=== PATIENT | female | born 1980 | race Caucasian/White ===

== ENCOUNTER 2018-11-27 07:00 | Day surgery (SDC) | payer OTHER ==
[~2018-11-27] VITALS: Ht 170.2 cm; Wt 61.2 kg
--- NOTE | ~2018-11-27 | OR ---
[facility] [address] [place] [id number] Draft DATE OF OPERATION: 11/27/2018 SURGEON: Amy Byers DO PREOPERATIVE DIAGNOSES: 1. Abnormal uterine bleeding. 2. Fibroid uterus. 3. Endometrial thickening. POSTOPERATIVE DIAGNOSES: 1. Abnormal uterine bleeding. 2. Fibroid uterus. 3. Endometrial lesion, polyps versus fibroids. PROCEDURES PERFORMED: 1. Hysteroscopic polypectomy. 2. Dilation and curettage. SIFTER AND MILLER: None. ANESTHESIA: General. ESTIMATED BLOOD LOSS: 25 mL. FLUID DEFICIT: 825 mL. SPECIMEN: Endometrial curettings, polyps and possible fibroids. FINDINGS: Normal external genitalia with irritated genital wart or mole in the right inguinal fold. Normal vagina with good apical support. The cervix was normal with IUD strings, 4 cm in length. On hysteroscopy, endocervical polyps were noted. IUD in excellent position of the uterine cavity. Thin endometrium with some irregularities. Possible polyp versus submucosal fibroids. Hemostasis at the end of procedure. PATIENT NAME: YAYA ALBRIGHT OPERATIVE REPORT DATE OF : 76 REPORT #: [id number] PHYSICIAN: AMY BYERS DO PCP: ERIC BENZ PA-C REPORT IS CONFIDENTIAL AND NOT TO BE RELEASED WITHOUT AUTHORIZATION [address] [address] Draft COMPLICATIONS: None. INDICATIONS: Ms. Albright is a very pleasant 38-year-old white female, who has been experiencing worsening abnormal uterine bleeding. An ultrasound was performed that demonstrated multiple fibroids and was suggestive of endometrial lesions, polyps versus fibroids. The patient does have an IUD in place that was noted to be in excellent position with Mirena. She continues to have irregular bleeding and would like to avoid hysterectomy if possible. The patient was consented for hysteroscopic polypectomy versus myomectomy with dilation and curettage. Risks, benefits, and alternatives were discussed in detail with the patient. The patient understands and wished to proceed with the procedure. TECHNIQUE: The patient was taken to the operating room. Time-out was performed to confirm correct patient and correct procedure. General anesthesia was adequately established. The patient was prepped and draped in dorsal lithotomy position with her feet in Yellofin stirrups. No preoperative antibiotics were indicated per SCIP protocol and no heparin was indicated per preemie score. A weighted speculum was placed in vagina and the anterior lip of the cervix was grasped with an Allis clamp. The cervix was gently dilated using Hegar dilators to a #7. Operative hysteroscope was placed at the cervical os and advanced under direct visualization into the uterine cavity. IUD strings were noted emerging 4 cm from the cervix and strings were followed through the endocervical canal. In the endocervix, there are multiple irregular polyps noted. Intracavitary lesions were noted under a very thin endometrium. Difficult to tell if these are polyps or fibroids visually, but I do suspect submucosal fibroids. Again, the IUD is in excellent position. There are normal tubal ostia bilaterally. A MyoSure Lite device was selected and sampling of the endometrium and submucosal lesions were performed removing all noted submucosal lesions. The camera was withdrawn into the endocervix and endocervical polyps were removed. There was briefly some brisk bleeding from these, but pressure was held for several minutes and all bleeding ceased. Estimated blood loss of 75 mL and a fluid deficit of 825 mL was noted. The IUD was able to be left in place with confirmed optimal placement. The patient was then taken to PACU in good and stable condition. Sponge, needle, and instrument counts correct x2 at the end of the procedure. Amy Byers DO PATIENT NAME: YAYA ALBRIGHT DAVID OPERATIVE REPORT DATE OF : 76 REPORT #: [id number] PHYSICIAN: AMY BYERS DO PCP: ERIC BENZ PA-C REPORT IS CONFIDENTIAL AND NOT TO BE RELEASED WITHOUT AUTHORIZATION [facility] [address] [place] [address] Donis Suggs [id number] Draft JDaleW/MODL /[id number] Copies: ~ PATIENT NAME: YAYA ALBRIGHT OPERATIVE REPORT DATE OF : 76 REPORT #: [id number] PHYSICIAN: AMY BYERS DO PCP: ERIC BENZ PA-C REPORT IS CONFIDENTIAL AND NOT TO BE RELEASED WITHOUT AUTHORIZATION
--- NOTE | 2018-11-27 10:01 | NUR ---
11/27/18 Kait1 Selena Kelly 0950-PATIENT ARRIVED TO PACU AWAKE DROWSY DENIES PAIN OR NAUSEA. RR EVEN. SR. SMALL AMT OF DRAINAGE ON JOYCE PAD. 0952-PATIENT AWAKE PLACED ON RA RR EVEN. PATIENT REPOSITIONING SELF IN BED SITTING UP DENIES PAIN OR NAUSEA.
--- NOTE | 2018-11-27 10:19 | NUR ---
ICED WATER GIVEN. CALL LIGHT WITHIN REACH.
[2018-11-27] MEDS ORDERED: MOTRIN IB200 MG PO (10:50)
--- NOTE | 2018-11-27 11:27 | NUR ---
LE 1115: PATIENT UP TO THE BATHROOM WITH RN STANDBY. PATIENT VOIDS 200 ML BLOODY URINE AND AMBULATES BACK TO HER ROOM. PATIENT IS GIVEN DISCHARGE INSTRUCTIONS AND SHE VERBALIZES UNDERSTANDING. PATIENT GETTING DRESSED AND TRANSFERS HERSELF TO WHEELCHAIR AND TOLERATES THAT WELL.
--- NOTE | 2018-11-27 13:26 | NUR ---
PT ALERT, ORIENTED AND SUPPORTED BY HER DAUGHTER. SHE SEEMS PREPARED, HAD FEW QUESTIONS. PT REQUESTED PRAYER, WILL FOLLOW NEEDED
--- NOTE | 2018-11-28 15:27 | PATH ---
[facility] [address] [place], [place] [address] Signed SPECIMEN(S): A ENDOMETRIAL AND ENDOCERVICAL POLYPS SPECIMEN SOURCE: A. ENDOMETRIAL AND ENDOCERVICAL POLYPS CLINICAL HISTORY: Abnormal uterine bleeding. FINAL PATHOLOGIC DIAGNOSIS: Uterus, curettage: Endocervical tissue: Glandular endocervical polyp, negative for malignancy. Endometrium: Features consistent with polyp. Negative for hyperplasia, atypia and malignancy. LJA:cml:C2NR MICROSCOPIC EXAMINATION: Histologic sections of all submitted blocks are examined by light microscopy. These findings, together with the gross examination, support the pathologic diagnosis. GROSS DESCRIPTION: The specimen, labeled "LH, endometrial and endocervical polyps," is received in formalin and consists of irregular shaped, membranous and mucinous tissue fragments that in aggregate measure 3.0 x 2.0 x 0.6 cm. The specimen is entirely submitted in cassette (A1). JS (under the direct supervision of a pathologist) The Gross Description was prepared using a voice recognition system. The report was reviewed for accuracy; however, sound-alike word errors, addition and/or deletions may occur. If there is any question about this report, please contact Client Services. PERFORMING LABORATORY: The technical component was performed by [facility], [address] [place] [id number] (Felt Coverer: Juana Pepe MD; CLIA# [id number]). [facility], [address] [address] (Felt Coverer: Yonatan Nair MD; CLIA# [id number]). Diagnostician: Yonatan Nair MD Pathologist PATIENT NAME: YAYA ALBRIGHT PATHOLOGY DATE OF : [birth year] REPORT #: [id number] PHYSICIAN: [facility] PCP: ERIC BENZ PA-C REPORT IS CONFIDENTIAL AND NOT TO BE RELEASED WITHOUT AUTHORIZATION [address] [address] Signed Electronically Signed 11/28/2018 Copies: ~ PATIENT NAME: YAYA ALBRIGHT PATHOLOGY DATE OF : 76 REPORT #: [id number] PHYSICIAN: [facility] PCP: ERIC BENZ PA-C REPORT IS CONFIDENTIAL AND NOT TO BE RELEASED WITHOUT AUTHORIZATION
== END 2018-11-27 11:25 | disposition home or self-care (01) ==
LOC: DS 07:00 → OPS 07:00 → DS 10:30 → OPS 11:25
PROVIDERS: Obstetrics & Gynecology
PROC: 0UDB8ZZ Extraction of Endometrium, Via Natural or Artificial Opening Endoscopic (ICD-10-PCS; 2018-11-27)
PROC: 0UBC8ZZ Excision of Cervix, Via Natural or Artificial Opening Endoscopic (ICD-10-PCS; principal; 2018-11-27 10:30)
PROC: 0UB98ZZ Excision of Uterus, Via Natural or Artificial Opening Endoscopic (ICD-10-PCS; 2018-11-27 10:30)
DX: N84.1 Polyp of cervix uteri (principal); N85.8 Other specified noninflammatory disorders of uterus; F17.210 Nicotine dependence, cigarettes, uncomplicated; Z88.2 Allergy status to sulfonamides; Z88.8 Allergy status to other drugs, medicaments and biological substances
CPT/HCPCS: J1100; J1885; J2250; J2405; J2704; J3010; J7120